=== PATIENT | male | born 1950 | race Two or more races ===

== ENCOUNTER 2018-05-05 14:38 | Outpatient (CLI) | payer OTHER | END 2018-05-05 14:51 | disposition home or self-care (01) | LOC: MRI 14:38 | DX: M51.16 Intervertebral disc disorders with radiculopathy, lumbar region (principal) | CPT/HCPCS: 72148 ==

== ENCOUNTER 2018-05-08 16:02 | Outpatient (CLI) | payer OTHER | END 2018-05-08 17:44 | disposition home or self-care (01) | LOC: SONOGRAMA 16:02 | DX: N13.39 Other hydronephrosis (principal) ==

== ENCOUNTER 2018-05-12 08:57 | Outpatient (CLI) | payer OTHER | END 2018-05-12 09:05 | disposition home or self-care (01) | LOC: MRI 08:57 | DX: R31.9 Hematuria, unspecified (principal); N13.4 Hydroureter | CPT/HCPCS: 72195; 74181 ==

== ENCOUNTER → 2018-10-23 | Outpatient (CLI) | payer OTHER ==
[~2018-10-23] MED LIST: COZAAR100 MG PO; FOLGARD TABLET1 EACH PO; TOPROL XL50 M1 PO; TRADJENTA5 MG; ZOCOR20 MG PO
== END | disposition home or self-care (01) ==
LOC: NUCLEAR 12:29
DX: N13.4 Hydroureter (principal)
CPT/HCPCS: 78708; A9539; J1940

== ENCOUNTER 2018-11-02 13:58 | Outpatient (CLI) | payer OTHER | END 2018-11-02 14:01 | disposition home or self-care (01) | LOC: TOM 13:58 | DX: N20.0 Calculus of kidney (principal); N40.1 Benign prostatic hyperplasia with lower urinary tract symptoms; N13.1 Hydronephrosis with ureteral stricture, not elsewhere classified ==

== ENCOUNTER 2018-11-03 08:37 | Day surgery (SDC) | payer OTHER | END 2018-11-03 22:00 | disposition home or self-care (01) | LOC: CIR.AMB 08:37 | DX: N13.5 Crossing vessel and stricture of ureter without hydronephrosis (principal) ==

== ENCOUNTER → 2019-03-03 08:14 | Outpatient (CLI) | payer OTHER | END | disposition home or self-care (01) | LOC: LAB 08:14 | DX: I12.9 Hypertensive chronic kidney disease with stage 1 through stage 4 chronic kidney disease, or unspecified chronic kidney disease (principal); E03.8 Other specified hypothyroidism; N40.1 Benign prostatic hyperplasia with lower urinary tract symptoms; D64.89 Other specified anemias; E78.89 Other lipoprotein metabolism disorders ==

== ENCOUNTER 2019-03-06 12:58 | Outpatient (CLI) | payer OTHER | END 2019-03-06 13:08 | disposition home or self-care (01) | LOC: SONOGRAMA 12:58 → MAMO-SONO 13:15 | DX: N40.1 Benign prostatic hyperplasia with lower urinary tract symptoms (principal); N13.1 Hydronephrosis with ureteral stricture, not elsewhere classified ==

== ENCOUNTER 2019-03-09 07:33 | Outpatient (CLI) | payer OTHER | END 2019-03-09 07:40 | disposition home or self-care (01) | LOC: LAB 07:33 | DX: N40.1 Benign prostatic hyperplasia with lower urinary tract symptoms (principal); N13.1 Hydronephrosis with ureteral stricture, not elsewhere classified; R31.1 Benign essential microscopic hematuria; R73.09 Other abnormal glucose; N39.0 Urinary tract infection, site not specified ==

== ENCOUNTER 2019-04-12 07:13 | Outpatient (CLI) | payer OTHER ==
[~2019-04-12 07:13] MED LIST changes: +ATACAND32 MG PO; +BACTRIM DS TAB1 EACH PO
== END 2019-04-12 07:21 | disposition home or self-care (01) ==
LOC: LAB 07:13
DX: N39.0 Urinary tract infection, site not specified (principal)

== ENCOUNTER 2019-04-13 05:55 | Day surgery (SDC) | payer OTHER | END 2019-04-13 16:25 | disposition home or self-care (01) | LOC: CIR.AMB 05:55 | DX: N13.5 Crossing vessel and stricture of ureter without hydronephrosis (principal) ==

== ENCOUNTER → 2019-04-17 06:58 | Outpatient (CLI) | payer OTHER | END | disposition home or self-care (01) | LOC: LAB 06:58 | DX: N18.3 Chronic kidney disease, stage 3 (moderate) (principal) ==

== ENCOUNTER 2019-07-10 07:46 | Outpatient (CLI) | payer OTHER | END 2019-07-10 07:50 | disposition home or self-care (01) | LOC: LAB 07:46 | DX: R80.8 Other proteinuria (principal); I10 Essential (primary) hypertension; E11.21 Type 2 diabetes mellitus with diabetic nephropathy; Z12.11 Encounter for screening for malignant neoplasm of colon; E11.65 Type 2 diabetes mellitus with hyperglycemia; E03.8 Other specified hypothyroidism; E78.1 Pure hyperglyceridemia; E55.9 Vitamin D deficiency, unspecified; N40.0 Benign prostatic hyperplasia without lower urinary tract symptoms ==

== ENCOUNTER 2019-07-11 08:59 | Outpatient (CLI) | payer OTHER | END 2019-07-11 09:04 | disposition home or self-care (01) | LOC: LAB 08:59 | DX: E03.8 Other specified hypothyroidism (principal); E78.1 Pure hyperglyceridemia; E11.65 Type 2 diabetes mellitus with hyperglycemia; Z12.11 Encounter for screening for malignant neoplasm of colon; N40.0 Benign prostatic hyperplasia without lower urinary tract symptoms; I12.9 Hypertensive chronic kidney disease with stage 1 through stage 4 chronic kidney disease, or unspecified chronic kidney disease; E55.9 Vitamin D deficiency, unspecified ==

== ENCOUNTER 2019-11-08 11:02 | Outpatient (CLI) | payer OTHER ==
[~2019-11-08 11:02] MED LIST changes: +COZAAR25 MG PO; +SIMVASTAT PO
== END 2019-11-08 11:11 | disposition home or self-care (01) ==
LOC: LAB 11:02
PROVIDERS: ATTEND Urology
DX: N39.0 Urinary tract infection, site not specified (principal); R31.0 Gross hematuria

== ENCOUNTER 2019-11-09 09:19 | Day surgery (SDC) | payer OTHER | END 2019-11-09 18:15 | disposition home or self-care (01) | LOC: CIR.AMB 09:19 | PROVIDERS: ATTEND Urology | DX: N40.1 Benign prostatic hyperplasia with lower urinary tract symptoms (principal); N13.1 Hydronephrosis with ureteral stricture, not elsewhere classified ==

== ENCOUNTER 2020-04-22 20:50 | Inpatient (IN) | payer OTHER ==
[~2020-04-22] VITALS: Ht 167.6 cm; Wt 72.6 kg
--- NOTE | 2020-04-22 21:27 | NUR ---
SE RECIBE PTE DESORIENTADO EN AQMBULANCIA, PARAMEDICOS REFIERE TRAER A PTE POR FIEBRE Y MALESTAR GENERAL, SE ASHLEE S/V A PTE PTE CON BP 48/30, PTE SE OBSERVA CON TAQUIPNEA, PTE SATURANDO 77% CON PULSO EN 150L/MIN. SE NOTIFICA A DR. PERALES S/V DE PTE. PTE SE COLOCA EN UNIDAD SEC. K.
--- NOTE | 2020-04-22 22:31 | NUR ---
SE EDUCA A PTE SOBRE TX MEDICO KITTY AL MOMENTO SE ENCUENTRA DESORIENTADO. SE ASHLEE MUESTRAS DELAB UTILIZANDO MEDIDAS ASEPTICAS, SE COLOCA H/L X2 EN BRAZO RT LOS CUALES SE ENCUENTRAN PATENTES Y LIBRES DE EDEMA. SE COLOCAN 2 BOLSAS DE 250ML DE 0.9NSS BAJANDO FULL DRIP. SE RE EVALUA BP DE PTE. PTE CON BP EN 54/[address] PERALES. SE COLOCA LEVOPHED DE 8MG/250D5W BAJANDO A 10 ML/HR. SE NOTIFICAN ABGS Y RX PENDIENTES A REALIZAR. SE COLOCA VT MASK AL 35%. SE MIDE BP 30MIN LUEGO DE COMENZAR DRIP DE LEVOPHED, PTE CONTINUA CON HIPOTENSION SE COLOCA DRIP DE LEVOPHED A 25ML/HR. LUEGO DE 30 MIN SE RE EVALUA BP A PTE. PTE CON BP DE 78/48. PTE EN ESPERA DE ESTUDIO DE CT ORDENADO Y CONSULTA CON MEDICINA INTERNA.
--- NOTE | 2020-04-22 23:30 | NUR ---
SE RECIBE PTE MASCULINO MAYOR DE EDAD DEL TURNO ANTERIOR EN UNIDAD DE SEC-K, CONECTADO A MONITOR CARDIACO Y OXIMETRIA DE PULSO CONTINUA. SE OBSERVA PTE ASISTIDO RESPIRATORIAMENTE CON VENTURIMASK AL 50% PRESENTANDO SATURACION DE O2 MANUAL 98%. AL MOMENTO ALERTA Y ORIENTADO EN LAS [place] ESFERAS SIN QUEJA DE DOLOR. VENOPUNCION X2 EN MANO R+ CON ANGIO #18 Y #20, PATENTES LIBRES DE EDEMA Y ERITEMA RECIBIENDO TERAPIA DE IVFS: 0.9NSS BAJANDO A 75ML/HR Y LEVOPHED 8MG/250ML D5W BAJANDO A 25ML/HR. SE OBSERVA PTE JUAN FRANCISCO DE EDEMA EN EXTREMIDADES SUPERIORES E INFERIORES. PTE CON ABDOMEN BLANDO Y DEPRESIBLE PERISTALSIS PRESENTE. PTE CON SONDA URINARIA A GRAVEDAD, SE OBSERVA CON ANURIA AL MOMENTO. SE ASHLEE Y REPORTAN S/V. SE NOTIFICAN LOS MISMOS A , QUIEN REFIERE ORDENARA TRATAMIENTO. [address] MANO L+ CON ANGIO #20, BAJO MEDIDAS ASEPTICAS, AREA JUAN FRANCISCO DE EDEMA Y ERITEMA. 04/23/20 0005 SE ADMINISTRA DRIP DE DOPAMINA 400MG/250ML BAJANDO A 10ML/HR, PREMA ORDEN MEDICA. SE ASHLEE Y REPORTAN S/V. SE MANTIENE EN OBSERVACION CONTINUA.
--- NOTE | 2020-04-23 01:45 | NUR ---
0140 PTE PRESENTA PULSO 167LAT/MIN BP:60/40MMHG (MANUAL), SAT O2:95% Y RR:25/MIN. SE CONTACTA VIA TELEFONICA A Y SE NOTIFICA ESTADO DE PTE, KITTY ORDENA ADMINISTRAR 0.9NSS DE 1,000ML FULLDRIP X2 EN JOAQUIN HORA CADA RADHA SE REALIZA READBACK X2. 0150 SE ADMINISTRAN LIQUIDOS INTRAVENOSOS PREMA ORDEN MEDICA.
== END 2020-05-09 23:07 | disposition home or self-care (01) | DRG 870 ==
LOC: ER 20:50 → ICU-2 04-23 02:16 → ICU 04-23 02:16 → MEDJ 05-07 21:38
PROVIDERS: ADMIT Specialist; ATTEND Specialist
PROC: 4A033R1 Measurement of Arterial Saturation, Peripheral, Percutaneous Approach (ICD-10-PCS; 2020-04-23)
PROC: 8E0ZXY6 Isolation (ICD-10-PCS; 2020-04-23)
PROC: 4A12X4Z Monitoring of Cardiac Electrical Activity, External Approach (ICD-10-PCS; 2020-04-23)
PROC: 3E0F7SF Introduction of Other Gas into Respiratory Tract, Via Natural or Artificial Opening (ICD-10-PCS; 2020-04-23)
PROC: 5A1955Z Respiratory Ventilation, Greater than 96 Consecutive Hours (ICD-10-PCS; principal; 2020-04-24)
PROC: 0BH17EZ Insertion of Endotracheal Airway into Trachea, Via Natural or Artificial Opening (ICD-10-PCS; 2020-04-24)
PROC: 02HV33Z Insertion of Infusion Device into Superior Vena Cava, Percutaneous Approach (ICD-10-PCS; 2020-04-25)
PROC: 5A1D70Z Performance of Urinary Filtration, Intermittent, Less than 6 Hours Per Day (ICD-10-PCS; 2020-04-28)
DX: A41.89 Other specified sepsis (principal); R65.21 Severe sepsis with septic shock; U07.1 COVID-19; J12.89 Other viral pneumonia; J96.01 Acute respiratory failure with hypoxia; N18.6 End stage renal disease; I48.20 Chronic atrial fibrillation, unspecified; E87.2 Acidosis; N13.6 Pyonephrosis; E87.0 Hyperosmolality and hypernatremia; I12.0 Hypertensive chronic kidney disease with stage 5 chronic kidney disease or end stage renal disease; N17.8 Other acute kidney failure; E11.22 Type 2 diabetes mellitus with diabetic chronic kidney disease; Z91.14 Patient's other noncompliance with medication regimen; Z99.2 Dependence on renal dialysis

== ENCOUNTER 2020-06-04 07:12 | Outpatient (CLI) | payer OTHER | END 2020-06-04 07:30 | disposition home or self-care (01) | LOC: LAB 07:12 | DX: U07.1 COVID-19 (principal); D64.89 Other specified anemias; E11.21 Type 2 diabetes mellitus with diabetic nephropathy; E11.65 Type 2 diabetes mellitus with hyperglycemia ==

== ENCOUNTER 2020-06-28 07:40 | Outpatient (CLI) | payer OTHER ==
[2020-07-10] MEDS ORDERED: COZAAR25 MG PO (09:04)
[2020-07-10] MEDS ORDERED: SIMVAST PO (09:04)
[2020-07-10] MEDS ORDERED: TRAJENTA PO (09:05)
[2020-07-10] MEDS ORDERED: VITAMIN D3 PO (09:06)
[2020-07-10] MEDS ORDERED: TOPROL XL100 M1 PO (09:06)
== END 2020-06-28 07:49 | disposition home or self-care (01) ==
LOC: LAB 07:40
PROVIDERS: ATTEND General Practice
DX: E03.8 Other specified hypothyroidism (principal); B96.1 Klebsiella pneumoniae [K. pneumoniae] as the cause of diseases classified elsewhere; E11.65 Type 2 diabetes mellitus with hyperglycemia; N39.0 Urinary tract infection, site not specified; E55.9 Vitamin D deficiency, unspecified; E78.00 Pure hypercholesterolemia, unspecified

== ENCOUNTER 2020-07-14 09:22 | Day surgery (SDC) | payer OTHER ==
[~2020-07-14 09:22] MED LIST changes: +SIMVAST PO; +TOPROL XL100 M1 PO; +TRAJENTA PO; +VITAMIN D3 PO
== END 2020-07-14 18:20 | disposition home or self-care (01) ==
LOC: CIR.AMB 09:22
PROVIDERS: ATTEND Urology
DX: N13.5 Crossing vessel and stricture of ureter without hydronephrosis (principal); Z20.828 Contact with and (suspected) exposure to other viral communicable diseases

== ENCOUNTER 2020-08-08 08:01 | Outpatient (CLI) | payer OTHER | END 2020-08-08 08:23 | disposition home or self-care (01) | LOC: LAB 08:01 | PROVIDERS: ATTEND Specialist | DX: E11.65 Type 2 diabetes mellitus with hyperglycemia (principal); E78.2 Mixed hyperlipidemia; D68.8 Other specified coagulation defects; D64.89 Other specified anemias ==

== ENCOUNTER 2020-08-25 06:53 | Outpatient (CLI) | payer OTHER | END 2020-08-25 07:03 | disposition home or self-care (01) | LOC: LAB 06:53 | PROVIDERS: ATTEND Urology | DX: N30.00 Acute cystitis without hematuria (principal); B96.1 Klebsiella pneumoniae [K. pneumoniae] as the cause of diseases classified elsewhere; E11.65 Type 2 diabetes mellitus with hyperglycemia ==

== ENCOUNTER 2020-08-27 06:53 | Outpatient (CLI) | payer OTHER | END 2020-08-27 07:04 | disposition home or self-care (01) | LOC: LAB 06:53 | PROVIDERS: ATTEND General Practice | DX: N39.0 Urinary tract infection, site not specified (principal); E11.65 Type 2 diabetes mellitus with hyperglycemia ==

== ENCOUNTER 2020-10-31 06:52 | Outpatient (CLI) | payer OTHER ==
[2020-12-01] MEDS ORDERED: TOPROL XL50 M1 PO (10:04)
[2020-12-01] MEDS ORDERED: COZAAR100 MG PO (10:05)
[2020-12-01] MEDS ORDERED: TRAJENTA PO (10:06)
== END 2020-10-31 07:01 | disposition home or self-care (01) ==
LOC: LAB 06:52
PROVIDERS: ATTEND Urology
DX: N25.81 Secondary hyperparathyroidism of renal origin (principal); E11.21 Type 2 diabetes mellitus with diabetic nephropathy; Z12.11 Encounter for screening for malignant neoplasm of colon; N40.1 Benign prostatic hyperplasia with lower urinary tract symptoms; N30.00 Acute cystitis without hematuria

== ENCOUNTER → 2020-11-01 07:09 | Outpatient (CLI) | payer OTHER | END | disposition home or self-care (01) | LOC: LAB 07:09 | PROVIDERS: ATTEND Urology | DX: N25.81 Secondary hyperparathyroidism of renal origin (principal); E11.21 Type 2 diabetes mellitus with diabetic nephropathy; Z12.11 Encounter for screening for malignant neoplasm of colon; E11.65 Type 2 diabetes mellitus with hyperglycemia; N40.1 Benign prostatic hyperplasia with lower urinary tract symptoms ==

== ENCOUNTER → 2020-11-14 07:27 | Outpatient (CLI) | payer OTHER | END | disposition home or self-care (01) | LOC: LAB 07:27 → RAD 07:27 | PROVIDERS: ATTEND Specialist | DX: D68.8 Other specified coagulation defects (principal); D64.89 Other specified anemias; J45.998 Other asthma ==

== ENCOUNTER 2020-12-05 05:54 | Day surgery (SDC) | payer OTHER | END 2020-12-05 10:35 | disposition home or self-care (01) | LOC: CIR.AMB 05:54 | PROVIDERS: ATTEND Urology | DX: N13.5 Crossing vessel and stricture of ureter without hydronephrosis (principal); Z20.822 Contact with and (suspected) exposure to COVID-19 ==

== ENCOUNTER 2021-01-09 07:17 | Outpatient (CLI) | payer OTHER | END 2021-01-09 07:20 | disposition home or self-care (01) | LOC: LAB 07:17 | PROVIDERS: ATTEND General Practice | DX: G89.4 Chronic pain syndrome (principal); E78.1 Pure hyperglyceridemia; N39.0 Urinary tract infection, site not specified; E11.65 Type 2 diabetes mellitus with hyperglycemia ==

== ENCOUNTER 2021-02-21 08:10 | Outpatient (CLI) | payer OTHER | END 2021-02-21 08:19 | disposition home or self-care (01) | LOC: LAB 08:10 | PROVIDERS: ATTEND Urology | DX: N40.1 Benign prostatic hyperplasia with lower urinary tract symptoms (principal); B96.1 Klebsiella pneumoniae [K. pneumoniae] as the cause of diseases classified elsewhere; N13.1 Hydronephrosis with ureteral stricture, not elsewhere classified; N30.00 Acute cystitis without hematuria; E11.65 Type 2 diabetes mellitus with hyperglycemia; E11.21 Type 2 diabetes mellitus with diabetic nephropathy ==

== ENCOUNTER → 2021-03-23 07:41 | Outpatient (CLI) | payer OTHER | END | disposition home or self-care (01) | LOC: LAB 07:41 | PROVIDERS: ATTEND Urology | DX: R31.1 Benign essential microscopic hematuria (principal) ==

== ENCOUNTER → 2021-04-20 06:56 | Outpatient (CLI) | payer OTHER ==
[~2021-04-20 06:56] MED LIST changes: +LOKELMA5 GM PO; +ZETIA10 MG PO
== END | disposition home or self-care (01) ==
LOC: LAB 06:56
PROVIDERS: ATTEND Urology
DX: N30.00 Acute cystitis without hematuria (principal); R31.1 Benign essential microscopic hematuria; B96.1 Klebsiella pneumoniae [K. pneumoniae] as the cause of diseases classified elsewhere; I25.10 Atherosclerotic heart disease of native coronary artery without angina pectoris

== ENCOUNTER 2021-04-24 07:05 | Day surgery (SDC) | payer OTHER | END 2021-04-24 11:10 | disposition home or self-care (01) | LOC: CIR.AMB 07:05 | PROVIDERS: ATTEND Urology | DX: N13.1 Hydronephrosis with ureteral stricture, not elsewhere classified (principal); Z20.822 Contact with and (suspected) exposure to COVID-19 ==

== ENCOUNTER 2021-05-04 07:55 | Outpatient (CLI) | payer OTHER | END 2021-05-04 07:58 | disposition home or self-care (01) | LOC: LAB 07:55 | PROVIDERS: ATTEND Specialist | DX: E11.65 Type 2 diabetes mellitus with hyperglycemia (principal); E78.2 Mixed hyperlipidemia; D64.89 Other specified anemias; E11.21 Type 2 diabetes mellitus with diabetic nephropathy ==

== ENCOUNTER 2021-05-08 07:09 | Outpatient (CLI) | payer OTHER | END 2021-05-08 07:11 | disposition home or self-care (01) | LOC: LAB 07:09 | PROVIDERS: ATTEND General Practice | DX: N39.0 Urinary tract infection, site not specified (principal); B96.1 Klebsiella pneumoniae [K. pneumoniae] as the cause of diseases classified elsewhere ==

== ENCOUNTER 2021-07-23 08:07 | Outpatient (CLI) | payer OTHER | END 2021-07-23 08:19 | disposition home or self-care (01) | LOC: LAB 08:07 | PROVIDERS: ATTEND Urology | DX: E03.9 Hypothyroidism, unspecified (principal); E11.21 Type 2 diabetes mellitus with diabetic nephropathy; N39.9 Disorder of urinary system, unspecified; N40.1 Benign prostatic hyperplasia with lower urinary tract symptoms; D40.0 Neoplasm of uncertain behavior of prostate; E78.2 Mixed hyperlipidemia; E11.65 Type 2 diabetes mellitus with hyperglycemia; Z12.11 Encounter for screening for malignant neoplasm of colon; D64.9 Anemia, unspecified; J45.998 Other asthma; N18.31 Chronic kidney disease, stage 3a; R80.9 Proteinuria, unspecified; N30.00 Acute cystitis without hematuria ==

== ENCOUNTER 2021-07-24 09:15 | Outpatient (CLI) | payer OTHER | END 2021-07-24 09:16 | disposition home or self-care (01) | LOC: LAB 09:15 | PROVIDERS: ATTEND Specialist | DX: E03.9 Hypothyroidism, unspecified (principal); E11.21 Type 2 diabetes mellitus with diabetic nephropathy; N39.9 Disorder of urinary system, unspecified; N40.1 Benign prostatic hyperplasia with lower urinary tract symptoms; D40.0 Neoplasm of uncertain behavior of prostate; E78.2 Mixed hyperlipidemia; E11.65 Type 2 diabetes mellitus with hyperglycemia; Z12.11 Encounter for screening for malignant neoplasm of colon; D64.9 Anemia, unspecified; J45.998 Other asthma ==

== ENCOUNTER 2021-08-14 08:13 | Outpatient (CLI) | payer OTHER | END 2021-08-14 08:39 | disposition home or self-care (01) | LOC: LAB 08:13 | PROVIDERS: ATTEND Specialist | DX: N39.9 Disorder of urinary system, unspecified (principal); D64.9 Anemia, unspecified; E11.65 Type 2 diabetes mellitus with hyperglycemia; D68.8 Other specified coagulation defects; N25.81 Secondary hyperparathyroidism of renal origin; N39.0 Urinary tract infection, site not specified ==

== ENCOUNTER 2021-08-21 06:00 | Day surgery (SDC) | payer OTHER | END 2021-08-21 11:10 | disposition home or self-care (01) | LOC: CIR.AMB 06:00 | PROVIDERS: ATTEND Urology | DX: N13.1 Hydronephrosis with ureteral stricture, not elsewhere classified (principal); N13.5 Crossing vessel and stricture of ureter without hydronephrosis; N18.9 Chronic kidney disease, unspecified; N40.1 Benign prostatic hyperplasia with lower urinary tract symptoms; I10 Essential (primary) hypertension; E78.5 Hyperlipidemia, unspecified; Z86.16 Personal history of COVID-19 ==

== ENCOUNTER 2021-10-17 07:28 | Outpatient (CLI) | payer OTHER | END 2021-10-17 07:32 | disposition home or self-care (01) | LOC: LAB 07:28 | PROVIDERS: ATTEND General Practice | DX: E11.65 Type 2 diabetes mellitus with hyperglycemia (principal); I12.9 Hypertensive chronic kidney disease with stage 1 through stage 4 chronic kidney disease, or unspecified chronic kidney disease; N39.0 Urinary tract infection, site not specified; N18.32 Chronic kidney disease, stage 3b; R80.9 Proteinuria, unspecified; E11.22 Type 2 diabetes mellitus with diabetic chronic kidney disease ==

== ENCOUNTER 2021-11-05 10:48 | Outpatient (CLI) | payer OTHER | END 2021-11-05 10:58 | disposition home or self-care (01) | LOC: PPH VACUNA 10:48 | PROVIDERS: ATTEND Emergency Medicine Pediatric Emergency Medicine | DX: Z23 Encounter for immunization (principal) ==

== ENCOUNTER 2021-11-13 05:53 | Day surgery (SDC) | payer OTHER ==
[~2021-11-13] VITALS: Ht 162.6 cm; Wt 83.9 kg
== END 2021-11-13 10:45 | disposition home or self-care (01) ==
LOC: CIR.AMB 05:53
PROVIDERS: ATTEND Urology
DX: N13.2 Hydronephrosis with renal and ureteral calculous obstruction (principal); Z20.822 Contact with and (suspected) exposure to COVID-19; I10 Essential (primary) hypertension; E78.5 Hyperlipidemia, unspecified; Z86.16 Personal history of COVID-19; N40.0 Benign prostatic hyperplasia without lower urinary tract symptoms; N28.9 Disorder of kidney and ureter, unspecified; E66.9 Obesity, unspecified

== ENCOUNTER 2022-02-12 07:17 | Outpatient (CLI) | payer OTHER | END 2022-02-12 07:33 | disposition home or self-care (01) | LOC: LAB 07:17 | PROVIDERS: ATTEND General Practice | DX: I12.9 Hypertensive chronic kidney disease with stage 1 through stage 4 chronic kidney disease, or unspecified chronic kidney disease (principal); E11.00 Type 2 diabetes mellitus with hyperosmolarity without nonketotic hyperglycemic-hyperosmolar coma (NKHHC); E78.1 Pure hyperglyceridemia; N30.00 Acute cystitis without hematuria; N18.31 Chronic kidney disease, stage 3a; R80.9 Proteinuria, unspecified; Z79.01 Long term (current) use of anticoagulants ==

== ENCOUNTER 2022-09-25 08:07 | Outpatient (CLI) | payer OTHER | END 2022-09-25 08:17 | disposition home or self-care (01) | LOC: LAB 08:07 | PROVIDERS: ATTEND Urology | DX: R31.0 Gross hematuria (principal); N30.00 Acute cystitis without hematuria; Z20.822 Contact with and (suspected) exposure to COVID-19 ==

== ENCOUNTER 2022-10-08 06:05 | Day surgery (SDC) | payer OTHER ==
[~2022-10-08] VITALS: Ht 160 cm; Wt 81.6 kg
== END 2022-10-08 10:55 | disposition home or self-care (01) ==
LOC: CIR.AMB 06:05
PROVIDERS: ATTEND Urology
DX: N13.1 Hydronephrosis with ureteral stricture, not elsewhere classified (principal); R33.9 Retention of urine, unspecified; E11.9 Type 2 diabetes mellitus without complications; I10 Essential (primary) hypertension; Z20.822 Contact with and (suspected) exposure to COVID-19

== ENCOUNTER 2023-04-22 05:20 | Day surgery (SDC) | payer OTHER ==
[2023-04-18 10:48] LABS: HEMATOCRIT 40.3 % (39.0-48.0); HEMOGLOBIN 13.4 g/dL (13-16.00); MEAN CORPUSCULAR HEMOGLOBIN 31.6 pg (27.00-32.0); MEAN CORPUSCULAR HGB CONC 33.2 g/dl (32.0-36.0); PLATELET COUNT 243 K/uL (150-450); RED BLOOD COUNT 4.24 M/uL (4.00-6.00); RED CELL DISTRIBUTION WIDTH 13.7 % (11.5-14.5)
[2023-04-18 11:02] LABS: URINE APPEARANCE Clear; URINE BILIRRUBIN Negative (NEGATIVE); URINE BLOOD Trace; URINE COLOR Yellow; URINE GLUCOSE Negative (NEGATIVE); URINE LEUKOCYTE Large; URINE NITRATE Negative; URINE PROTEIN 30 (NEGATIVE); URINE UROBILINOGEN 0.2 E.U./dl
[2023-04-18 11:03] LABS: URINE EPITHELIAL CELLS 8.5 uL (0.0-38.8); URINE RBC 4.3 uL (0.0-20.8); URINE WBC 390.1 uL (0.0-23.2)
[2023-04-18 11:09] LABS: CALCIUM 9.3 mg/dL (8.5-10.1); CREATININE SERUM 2.78 mg/dL (0.70-1.30); GFR 22.45; POTASSIUM 5.06 mEq/L (3.5-5.1); URINE BACTERIA > 9821.5 uL (0.0-1933)
[2023-04-18 11:46] LABS: INR < 0.93; PARTIAL THROMBOPLASTIN TIME 27.7 SECONDS (22.0-34.0); PROTHROMBIN TIME 9.7 SECONDS (9.0-11.5)
== END 2023-04-22 11:20 | disposition home or self-care (01) ==
LOC: CIR.AMB 05:20
PROVIDERS: ATTEND Urology
DX: N13.1 Hydronephrosis with ureteral stricture, not elsewhere classified (principal); Z20.822 Contact with and (suspected) exposure to COVID-19; E11.9 Type 2 diabetes mellitus without complications; E78.5 Hyperlipidemia, unspecified; I10 Essential (primary) hypertension

== ENCOUNTER 2023-12-23 05:56 | Day surgery (SDC) | payer OTHER ==
[2023-12-19 08:56] LABS: INR < 0.93; PARTIAL THROMBOPLASTIN TIME 29.3 SECONDS (22.0-34.0); PROTHROMBIN TIME 9.8 SECONDS (9.0-11.5)
[2023-12-19 09:12] LABS: CALCIUM 9.1 mg/dL (8.5-10.1); CREATININE SERUM 2.71 mg/dL (0.70-1.30); GFR 23.12; POTASSIUM 4.67 mEq/L (3.5-5.1)
[~2023-12-23 05:56] MED LIST changes: +SIMVASTATIN20 MG
[2023-12-23] MEDS ORDERED: CHLORHEXIDINE GLUCONATE 120 ML BOTTLE TOP ONE (07:06)
[2023-12-23] MEDS ORDERED: ERTAPENEM SODIUM 1,000 MG VIAL ONE (07:07)
[2023-12-23] MEDS ORDERED: PHENAZOPYRIDINE HCL 100 MG TABLET PO ONE ×2 (09:00→10:04)
== END 2023-12-23 10:50 | disposition home or self-care (01) ==
LOC: CIR.AMB 05:56
PROVIDERS: ATTEND Urology
DX: N13.1 Hydronephrosis with ureteral stricture, not elsewhere classified (principal); E11.9 Type 2 diabetes mellitus without complications; I10 Essential (primary) hypertension

== ENCOUNTER 2024-03-26 08:37 | Outpatient (CLI) | payer OTHER | END 2024-03-26 08:41 | disposition home or self-care (01) | LOC: TOM 08:37 | PROVIDERS: ATTEND Urology | DX: N13.1 Hydronephrosis with ureteral stricture, not elsewhere classified (principal) ==

== ENCOUNTER → 2024-07-17 09:49 | Outpatient (CLI) | payer OTHER ==
[2024-07-17 11:25] LABS: INR 0.94; PARTIAL THROMBOPLASTIN TIME 27.1 SECONDS (22.0-34.0); PROTHROMBIN TIME 10.3 SECONDS (9.0-11.5)
== END | disposition home or self-care (01) ==
LOC: RAD 09:49
PROVIDERS: ATTEND Urology
DX: R31.0 Gross hematuria (principal); I25.10 Atherosclerotic heart disease of native coronary artery without angina pectoris

== ENCOUNTER 2024-12-28 06:05 | Day surgery (SDC) | payer OTHER ==
[2024-12-20 09:20] LABS: URINE APPEARANCE Cloudy; URINE BILIRRUBIN Negative (NEGATIVE); URINE BLOOD Moderate; URINE COLOR Yellow; URINE EPITHELIAL CELLS 7.5 uL (0.0-38.8); URINE GLUCOSE Negative (NEGATIVE); URINE KETONE Negative (NEGATIVE); URINE LEUKOCYTE Large; URINE NITRATE Positive; URINE RBC 5.2 uL (0.0-20.8); URINE UROBILINOGEN 0.2 E.U./dl; URINE WBC 2311.4 uL (0.0-23.2)
[2024-12-20 09:29] LABS: COVID-19 AG NEGATIVE (NEGATIVE)
[2024-12-20 09:30] LABS: BASO % 0.6 % (0.1-1.2); EOS # 0.13 (0.04-0.54); EOS % 1.6 % (0.7-7.0); LYMPH # 1.44 (1.18-3.74); LYMPH % 18.0 % (19.3-53.1); MEAN PLATELET VOLUME 9.10 fl (9.4-12.4); MONO # 1.13 (0.24-0.82); NEUT # 5.22 (1.56-6.13); NEUT % 65.2 % (34.0-71.1); RED CELL DISTRIBUTION WIDTH 14.6 % (11.6-14.4)
[2024-12-20 09:33] LABS: MONO % 14.1 % (4.7-12.5)
[2024-12-20 09:40] LABS: URINE BACTERIA > 9821.5 uL (0.0-1933); URINE CAST 0.87 uL (0.0-1.40); URINE PROTEIN 100 (NEGATIVE)
[2024-12-20 10:09] LABS: INR 0.98
[2024-12-20 10:21] LABS: BUN CREA RATIO 13.0 (7.0-25.0); CREATININE SERUM 3.35 mg/dL (0.70-1.30); GFR 18.05; GLUCOSE FASTING 108.0 mg/dL (65-100); OSMOLALITY SERUM 293.0 MOSM/KG (275-295)
[2024-12-28] MEDS ORDERED: GENTAMICIN SULFATE 40 MG/ML VIAL ONE (09:55)
[2024-12-28] MEDS ORDERED: CHLORHEXIDINE GLUCONATE 120 ML BOTTLE TOP ONE (13:51)
[2024-12-28] MEDS ORDERED: IOVERSOL 320 MG/ML - 50 ML VIAL IV ONE (13:52)
[2024-12-28] MEDS ORDERED: PHENAZOPYRIDINE HCL 100 MG TABLET PO STA (15:23)
[2024-12-28] MEDS ORDERED: PHENAZOPYRIDINE HCL 100 MG TABLET PO ONE (15:40)
[2024-12-28] MEDS ORDERED: MEROPENEM 500 MG/VIAL VIAL IV STA (15:46)
== END 2024-12-28 17:30 | disposition home or self-care (01) ==
LOC: CIR.AMB 06:05
PROVIDERS: ATTEND Urology
DX: N13.1 Hydronephrosis with ureteral stricture, not elsewhere classified (principal)